=== PATIENT | male | born 1990 ===

== ENCOUNTER 2017-05-15 20:10 | Emergency (ER) | payer MEDICAID ==
[2017-05-15 21:01] VITALS: RESP 18
--- NOTE | 2017-05-15 21:21 | ED PDOC ---
Arrival/HPI - General Chief Complaint: ENT Problem Time Seen by Provider: 05/15/17 20:31 Historian: Patient - History of Present Illness Narrative History of Present Illness (Text): 05/15/17 20:48 Rosana Garcia is a 27 year old male who presents to the Emergency department complaining of sore throat discomfort with associated ear ache discomfort for the past few days. Patient also reports occasional cough. Patient denies any history of fever, chills, difficulty swallowing, shortness of breath, vomiting, diarrhea, rash, or any other complaints. Symptom Onset: Gradual Symptom Course: Unchanged Activities at Onset: Light Context: Home Past Medical History - Provider Review Nursing Documentation Reviewed: Yes - Infectious Disease Hx of Infectious Diseases: None - Psychiatric Hx Substance Use: No Family/Social History - Physician Review Nursing Documentation Reviewed: Yes Family/Social History: Unknown Family HX Smoking Status: Never Smoked Hx Alcohol Use: No Hx Substance Use: No Allergies/Home Meds Allergies/Adverse Reactions: Allergies No Known Allergies Allergy (Verified 05/15/17 20:32) Review of Systems - Physician Review All systems were reviewed & negative as marked: Yes - Review of Systems Constitutional: Normal. absent: Fevers Eyes: Normal ENT: Sore Throat, Other (+ear ache discomfort) Respiratory: Normal. absent: SOB, Cough Cardiovascular: Normal. absent: Chest Pain Gastrointestinal: Normal. absent: Abdominal Pain, Diarrhea, Nausea, Vomiting Genitourinary Male: Normal. absent: Dysuria, Frequency, Hematuria, Urinary Output Changes Musculoskeletal: Normal. absent: Back Pain, Neck Pain Skin: Normal. absent: Rash Neurological: Normal. absent: Headache, Dizziness Endocrine: Normal Hemo/Lymphatic: Normal Psychiatric: Normal Physical Exam Vital Signs Reviewed: Yes Vital Signs Temp Pulse Resp BP Pulse Ox 05/15/17 20:29 98.9 F 93 H 18 150/83 97 Temperature: Afebrile Blood Pressure: Normal Pulse: Regular Respiratory Rate: Normal Appearance: Positive for: Well-Appearing, Non-Toxic, Comfortable Pain Distress: None Mental Status: Positive for: Alert and Oriented X 3 - Systems Exam Head: Present: Atraumatic, Normocephalic Pupils: Present: PERRL Extroacular Muscles: Present: EOMI Conjunctiva: Present: Normal Ears: Present: Normal, NORMAL TM, Normal Canal. No: Erythema Mouth: Present: Moist Mucous Membranes Pharnyx: Present: ERYTHEMA (Erythema to posterior pharynx). No: EXUDATE, TONSILS ENLARGED, Peritonsilar Swelling, Uvular Deviation, Muffled/Hoarse Voice , Strider, Soft Palate/Uvular Edema Nose (External): Present: Atraumatic Nose (Internal): Present: Normal Inspection Neck: Present: Normal Range of Motion. No: Meningeal Signs, MIDLINE TENDERNESS , Paraspinal Tenderness Respiratory/Chest: Present: Clear to Auscultation, Good Air Exchange. No: Respiratory Distress, Accessory Muscle Use Cardiovascular: Present: Regular Rate and Rhythm, Normal S1, S2. No: Murmurs Abdomen: Present: Normal Bowel Sounds. No: Tenderness, Distention, Peritoneal Signs Back: Present: Normal Inspection. No: CVA Tenderness, Midline Tenderness, Paraspinal Tenderness Upper Extremity: Present: Normal Inspection. No: Cyanosis, Edema Lower Extremity: Present: Normal Inspection. No: Edema Neurological: Present: GCS=15, CN II-XII Intact, Speech Normal Skin: Present: Warm, Dry, Normal Color. No: Rashes Psychiatric: Present: Alert, Oriented x 3, Normal Insight, Normal Concentration Medical Decision Making ED Course and Treatment: 05/15/17 20:48 Impression: 27 year old male complaining of sore throat discomfort, earache discomfort, and occasional cough for the past few days. Plan: -- Rapid influenza -- Reassess and disposition Progress Notes: - Lab Interpretations Lab Results: Lab Results 05/15/17 20:45: Influenza Typ A,B (EIA) Negative for flu a/b I have reviewed the lab results: Yes - Medication Orders Current Medication Orders: Discontinued Medications Amoxicillin (Amoxil 500 Mg Cap) 500 mg PO STAT STA PRN Reason: Protocol Stop: 05/15/17 21:44 - Scribe Statement The provider has reviewed the documentation as recorded by the Scribbeatris Swartz All medical record entries made by the Scribe were at my direction and personally dictated by me. I have reviewed the chart and agree that the record accurately reflects my personal performance of the history, physical exam, medical decision making, and the department course for this patient. I have also personally directed, reviewed, and agree with the discharge instructions and disposition. Disposition/Present on Arrival - Present on Arrival Any Indicators Present on Arrival: No History of DVT/PE: No History of Uncontrolled Diabetes: No Urinary Catheter: No History of Decub. Ulcer: No History Surgical Site Infection Following: None - Disposition Have Diagnosis and Disposition been Completed?: Yes Diagnosis: Pharyngitis Disposition: HOME/ ROUTINE Disposition Time: 21:50 Patient Plan: Discharge Condition: GOOD Discharge Instructions (ExitCare): Sore Throat, Adult (DC) Additional Instructions: Drink cool liquids/take meds as prescribed/follow up with your doctor as needed. Prescriptions: Amoxicillin [Amoxil 500 mg Cap] 500 mg PO TID #21 cap Referrals: Mira Gonzalez, [Primary Care Provider] - Follow up with primary Forms: [employer] (Portuguese)
[2017-05-15 21:58] VITALS: BP 133/91; PULSE 98; TEMP 97.8; O2SAT 98
== END 2017-05-15 22:17 | disposition home or self-care (01) ==
LOC: ED 20:10
DX: J02.9 Acute pharyngitis, unspecified (principal)

== ENCOUNTER 2017-09-26 16:19 | Emergency (ER) | payer MEDICAID ==
[2017-09-26 16:31] VITALS: RESP 18; BMI 44.1
[2017-09-26] MEDS ORDERED: Sodium Chloride 0.9% 1,000 ML IV STA (17:00)
[2017-09-26] MEDS ORDERED: DiphenhydrAMINE 50 mg/ml Inj IVP STA (17:00)
--- NOTE | 2017-09-26 17:01 | ED PDOC ---
Arrival/HPI - General Time Seen by Provider: 09/26/17 16:34 Historian: Patient - History of Present Illness Narrative History of Present Illness (Text): 09/26/17 17:01 This 27 yo male with pmh HTN, presents to this ED c/o Headache x 3 days. Patient stated headaches is throbbing, and he feels mild nauseous. Patient denies recent trauma, fever, weakness, paresthesias, diplopia, dysarthria, or abnormal gait. Time/Duration: Other (see hpi) Context: Home Past Medical History - Provider Review Nursing Documentation Reviewed: Yes - Infectious Disease Hx of Infectious Diseases: None - Psychiatric Hx Substance Use: No Family/Social History - Physician Review Nursing Documentation Reviewed: Yes Family/Social History: Other (noncontributory) Smoking Status: Never Smoked Hx Alcohol Use: No Hx Substance Use: No Allergies/Home Meds Allergies/Adverse Reactions: Allergies No Known Allergies Allergy (Verified 05/15/17 20:32) Review of Systems - Review of Systems Constitutional: Normal. absent: Fatigue, Weight Change, Fevers, Night Sweats Eyes: Normal ENT: Normal. absent: Sore Throat Respiratory: Normal. absent: SOB, Cough Cardiovascular: Normal. absent: Chest Pain, Palpitations Gastrointestinal: Nausea. absent: Abdominal Pain, Vomiting Genitourinary Male: Normal. absent: Dysuria, Frequency, Hematuria Musculoskeletal: Normal. absent: Back Pain, Neck Pain Skin: Normal. absent: Rash Neurological: Headache. absent: Dizziness, Focal Weakness, Gait Changes, Speech Changes, Facial Droop, Disequilibrium Endocrine: Normal Hemo/Lymphatic: Normal Psychiatric: Normal Physical Exam Vital Signs Temp Pulse Resp BP Pulse Ox 09/26/17 19:21 90 18 141/89 99 09/26/17 16:28 98.4 F 99 H 18 147/96 H 95 Temperature: Afebrile Blood Pressure: Normal Pulse: Regular Respiratory Rate: Normal Appearance: Positive for: Well-Appearing, Non-Toxic, Comfortable Pain Distress: None Mental Status: Positive for: Alert and Oriented X 3 - Systems Exam Head: Present: Atraumatic, Normocephalic Pupils: Present: PERRL Extroacular Muscles: Present: EOMI Conjunctiva: Present: Normal Mouth: Present: Moist Mucous Membranes Neck: Present: Normal Range of Motion Respiratory/Chest: Present: Clear to Auscultation, Good Air Exchange. No: Respiratory Distress, Accessory Muscle Use Cardiovascular: Present: Regular Rate and Rhythm, Normal S1, S2. No: Murmurs Abdomen: No: Tenderness, Distention, Peritoneal Signs Back: Present: Normal Inspection Upper Extremity: Present: Normal Inspection, Normal ROM, NORMAL PULSES, Neurovascularly Intact, Capillary Refill < 2s. No: Cyanosis, Edema Lower Extremity: Present: Normal Inspection, NORMAL PULSES, Normal ROM, Neurovascularly Intact, Capillary Refill < 2 s. No: Edema, CALF TENDERNESS Neurological: Present: GCS=15, CN II-XII Intact, Speech Normal, Motor Func Grossly Intact, Normal Sensory Function, Normal Cerebellar Funct, Gait Normal, Memory Normal, Other (No neuro focal deficits) Skin: Present: Warm, Dry, Normal Color. No: Rashes Psychiatric: Present: Alert, Oriented x 3, Normal Insight, Normal Concentration Medical Decision Making ED Course and Treatment: 09/26/17 19:55 Re-evaluation. Patient feels better. Discussed results and plan with patient who expresses understanding. All questions answered and there is agreement with the plan to discharge home with instructions. Patient stable for discharge. Return if symptoms persist or worsen. Patient was recommended to f/u neurologist for revaluation. Take medication as instructed, and to return to emergency if symptoms worsen. Re-evaluation Time: 19:55 Reassessment Condition: Re-examined, Improved - Medication Orders Current Medication Orders: Discontinued Medications Diphenhydramine HCl (Benadryl) 25 mg IVP STAT STA Stop: 09/26/17 17:01 Last Admin: 09/26/17 18:17 Dose: 25 mg IVP Administration Document 09/26/17 18:17 CT (Rec[email or web address] Charges for Administration # of IVP Administrations 1 Sodium Chloride (Sodium Chloride 0.9%) 1,000 mls @ 999 mls/hr IV .Q1H1M STA Stop: 09/26/17 18:00 Last Admin: 09/26/17 18:17 Dose: 999 mls/hr eMAR Start Stop Document 09/26/17 18:17 CT (Rec: 09/26/17 18:17 [email or web address] Intravenous Solution Start Date 09/26/17 Start Time 18:17 Metoclopramide HCl (Reglan) 10 mg IVP STAT STA Stop: 09/26/17 17:01 Last Admin: 09/26/17 18:17 Dose: 10 mg IVP Administration Document 09/26/17 18:17 [place] (Rec: 09/26/17 18:17 [place] [facility] [email or web address] Charges for Administration # of IVP Administrations 1 Disposition/Present on Arrival - Present on Arrival Any Indicators Present on Arrival: No History of DVT/PE: No History of Uncontrolled Diabetes: No Urinary Catheter: No History Surgical Site Infection Following: None - Disposition Have Diagnosis and Disposition been Completed?: Yes Diagnosis: Headache Disposition: HOME/ ROUTINE Disposition Time: 19:57 Patient Plan: Discharge Patient Problems: Current Active Problems Problem Status Onset Headache Acute Condition: IMPROVED Discharge Instructions (ExitCare): Headache, Adult (DC) Additional Instructions: Call private doctor for follow up visit in 1-2 days. Also, call neurologist for revaluation this week. Take medication as instructed with food. Return to emergency if headache returns. Do not drive or operate machinery if you take Valium for at least 12 hours Prescriptions: diaZEpam [Valium] 5 mg PO DAILY #5 tab Naproxen 500 mg PO BID PRN #14 tablet PRN Reason: Pain, Severe (8-10) Referrals: Iván Kim MD [Staff Provider] - Follow up with primary [facility] [Outside] - Follow up with primary [facility] [Outside] - Follow up with primary Forms: WORK NOTE
[2017-09-26 19:22] VITALS: O2SAT 99
[2017-09-26 20:25] VITALS: BP 137/90; PULSE 85; TEMP 98.3
--- NOTE | 2017-09-27 09:08 | CARD ---
APPROVED REPORT EKG Measurement Heart [id number] <Conclusion> Sinus tachycardia Nonspecific T wave abnormality No change
== END 2017-09-26 20:05 | disposition home or self-care (01) ==
LOC: ED 16:19
DX: R51 Headache (principal); I10 Essential (primary) hypertension
CPT/HCPCS: 93005; 96374; 96375; 99285; J1200; J2765; J7030